=== PATIENT | female | born 1940 | race Caucasian/White ===

== ENCOUNTER 2017-01-29 07:53 | Emergency (ER) | payer OTHER ==
[2017-01-29] MEDS ORDERED: METOPROLOL SUCCINATE 100 MG SR 24H TABLET PO ONE (08:03)
[2017-01-29 08:04] VITALS: RESP 18; TEMP 98.5
--- NOTE | 2017-01-29 08:13 | PDOC ---
Epistaxis / Nasal FB - General Chief Complaint: Nasal/Mouth Problem /Injury Stated Complaint: nosebleed Date Seen by Provider: 01/29/17 Time Seen by Provider: 08:09 Source: POSITIVE: Patient Exam Limitations: POSITIVE: No limitations Nurse's Notes Reviewed & Considered: Yes - History of Present Illness Initial Comments: Patient comes in today with chief complaint of nosebleed. Patient was in her normal state of health this morning when her nose began bleeding profusely from the right naris. She comes in for further evaluation with nosebleed and swallowing blood. She denies any fever chills or sweats, no vomiting or diarrhea. Blood pressure is elevated at 180/110. She only sporadically takes her blood. Medication when she thinks she needs it. She is a very difficult historian. Timing: REPORTS: Abrupt Severity: Severe Context: REPORTS: None Modifying Factors: improves with: Nothing Associated Symptoms: Nausea Similar Symptoms Previously: No Recent Care Received: REPORTS: Denies Any Prior Injuries Related to Current Complaint?: No - Patient Allergies Allergies/Adverse Reactions: Allergies Allergy/AdvReac Type Severity Reaction Status Date / Time meloxicam Allergy Severe VOMITING Verified 01/29/17 07:55 - Patient Home Medications Home Medications: Home Medications Furosemide [Lasix] 1 tab PO QAM tab 04/15/16 Abatacept Inj [Orencia Inj] 250 mg IV MONTHLY 04/29/16 Cholecalciferol (Vitamin D3) [Vitamin D3] 1 cap PO 2XW #16 cap 06/29/16 Metoprolol Succinate 1 tab PO DAILY #90 tab 08/07/16 Past Medical History - heen HEENT History: Denies History Cardiovascular History: Hypertension, Arrhythmia, Other (please comment) Additional Cardiovasular History: previous episodes of rapid HR and chest pain Respiratory History: Denies History Gastrointestinal History: Denies History Genitourinary History: Denies History Endocrine History: Denies History Musculoskeletal History: Rheumatoid Arthritis Prosthesis or Implant: No Neurological History: Denies History Blood Disorders: Anemia Psychiatric History: Denies History History of Sexually Transmitted Diseases: No Female Reproductive History: Hysterectomy Cancer History: Denies History In Past Year Been Physically Harmed or Verbally Threatened: No History of MDRO: No History of Other Communicable Diseases: No Tobacco Use: Never Smoker Alcohol Use: None Substance Use Type: None Previous Surgical History: No Type / Date of Surgery: T&A/APPY/HYSTER/bowel resection Anesthesia Reactions: No Malignant Hyperthermia: No Significant Family History: No pertinent family hx ROS - Limitations ROS Limitations: No Limitations Constitution: REPORTS: Denies Symptoms Cardiovascular: REPORTS: Denies Cardiac Symptoms Respiratory: REPORTS: Denies Resp Symptoms Neurological: REPORTS: Denies Neuro Symptoms Gastrointestinal: REPORTS: Nausea Endocrine: REPORTS: Denies Symptoms Musculoskeletal: REPORTS: Denies MS Symptoms Genitourinary: REPORTS: Denies Symptoms Eyes: REPORTS: Denies Symptoms ENT: REPORTS: Nose Bleed (Right naris.) Skin: REPORTS: Denies Skin Symptoms Lympathic: REPORTS: Denies Lympathic Symptoms Immunologic: POSITIVE: Denies Symptoms Psychiatric: POSITIVE: Anxiety Nose Complaint Exam - General Appearance General Appearance: POSITIVE: Alert, Cooperative, No Evidence of Trauma, Anxious - HEENT Head / Face: POSITIVE: Atraumatic, Normal Inspection, No Facial Swelling Eyes: POSITIVE: Inspection Normal, PERRL, EOM's Intact Ears: POSITIVE: Ears Normal Inspection, Auricle Normal Nose: POSITIVE: No Apparent Trauma, Epistaxis, Active Bleeding Oropharynx: POSITIVE: External Inspection Nml, Voice Normal - Neurological / Psychological Neurological: POSITIVE: Affect Apporpriate, Oriented X3 - Neck Neck: POSITIVE: Normal Inspection - Respiratory Respiratory: POSITIVE: No Respiratory Distress - Abdomen Abdomen: Denies Tenderness: (All Quadrants) - Skin Skin: POSITIVE: Normal Color, No Skin Rash Procedure - Nose Complaint Procedure External Pressure / Nose Pinched for (minutes): 20 Inspection Method: Nasal Speculum Treatment: Nasal Rocket Inserted Nose Complaint Progress - Results Reviewed by me Lab Results Reviewed: Yes Lab Results:: Laboratory Results 01/29/17 Range/Units 08:10 WBC 7.85 (4.8-10.8) 10^3/uL RBC 4.88 (4.20-5.40) 10^6/uL Hgb 11.9 L (12.0-16.0) g/dL Hct 38.0 (37.0-47.0) % MCV 77.9 L (81-99) FL MCH 24.4 L (27-31) PG MCHC 31.3 L (33-37) g/dL RDW Std Deviation 44.8 (39-50) fL RDW Coeff of Julian 16.0 H (11.5-14.5) % Plt Count 346 (140-350) 10*3/uL MPV 9.9 (7.4-12.2) FL Immature Gran % (Auto) 0.1 (0-5) % Neut % (Auto) 58.6 (50-80) % Lymph % (Auto) 30.8 (10-50) % [place] % (Auto) 5.5 (5-15) % Eos % (Auto) 4.5 (0-8) % Baso % (Auto) 0.5 (0-1) % Immature Gran # (Auto) 0.01 10*3/UL Neut # (Auto) 4.60 10*3/UL Lymph # (Auto) 2.42 10*3/uL [place] # (Auto) 0.43 (0.3-0.8) 10*3/UL Eos # (Auto) 0.35 10*3/UL Baso # (Auto) 0.04 10*3/UL WBC Morphology Comment Normal morphology (NORM) Plt Morphology Comment Normal morphology (NORM) RBC Morph Comment Normal morphology (NORM) PT 10.1 (9.7-11.4) secs INR 0.98 (0.00-5.90) N/A Sodium 143 (135-145) meq/L Potassium 4.2 (3.8-5.2) meq/L Chloride 111 (98-112) meq/L Carbon Dioxide 22 L (23-33) meq/L Anion Gap 10 (5-20) BUN 20 (7-22) mg/dL Creatinine 1.0 (0.50-1.20) mg/dL Estimated GFR (>60 ml/min/1.73m(2)) BUN/Creatinine Ratio 20.00 (6-20) Glucose 99 (78-110) mg/dL Calculated Osmolality 298.0 H (267-292) mOsm/kg Calcium 9.2 (8.7-10.7) mg/dL Magnesium 1.9 (1.6-2.4) mg/dL Total Bilirubin 0.4 (0.3-1.2) mg/dL AST 20 (8-39) IU/L ALT 19 (9-52) IU/L Alkaline Phosphatase 124 (38-126) IU/L Total Protein 7.7 (6.1-8.0) g/dL Albumin 4.0 (3.5-4.8) g/dL Globulin 3.7 (2.50-4.10) g/dL Albumin/Globulin Ratio 1.00 L (1.3-2.0) mg/g - Patient's Progress Pain Medication Addressed: POSITIVE: No Re-Examine Time:: 08:55 Status: POSITIVE: Improved MDM / ED Course: Patient was examined, an IV started, blood drawn and sent to the lab for studies. Bilateral Rhino Rockets were placed, 5.5 cm. The right Rhino Rocket was then deflated and removed and a 7.5 was placed. Patient's nosebleed continued briskly from the anterior nightmares. The 7.5 cm Rhino Rocket was deflated and removed more anteriorly and reinflated. No stasis was then achieved. Patient received metoprolol IV for her hypertension. sHe continued to be quite anxious during her ER stay. Patient also received IV Ativan, and IV morphine. Findings: CBC shows hemoglobin low at 11, white count hematocrit are normal. INR is normal at 0.98. Assessment: Epistaxis Plan: Discharge to home on amoxicillin 500 mg 3 times a day for 7 days. Patient receives a prescription for [place] 5/325 #20. I was able to contact the ENT office in [facility], patient will be seen at 11 AM today. - Consult Counseled: POSITIVE: Patient, Family, RE: Lab Results, RE: DX, RE: Need for F/U Patient Care Time - Estimated PCT Patient Care Time (In Minutes): 45 Vital Signs - Recent Vital Signs Vital Signs: Vital Signs (Last 8 hours) Temp Pulse Resp BP Pulse Ox 01/29/17 07:58 98.5 F 102 H 18 180/110 95 - VS Reviewed Vital Signs Reviewed: Yes Discharge Clinical Impression: Epistaxis Condition: Fair Patient Instructions Given at Discharge: Nosebleed (ED)
[2017-01-29] MEDS ORDERED: METOPROLOL TARTRATE 5 MG/5 ML VIAL ONE (08:16)
[2017-01-29 08:19] LABS: BASOPHILS # (AUTO) 0.04 10*3/UL; BASOPHILS % (AUTO) 0.5 % (0-1); EOSINOPHILS % (AUTO) 4.5 % (0-8); HEMOGLOBIN 11.9 g/dL (12.0-16.0); IMM GRAN % (AUTO) 0.1 % (0-5); IMM GRAN# (AUTO) 0.01 10*3/UL; LYMPHOCYTES # (AUTO) 2.42 10*3/uL; LYMPHOCYTES % (AUTO) 30.8 % (10-50); MEAN CORPUSCULAR HEMOGLOBIN 24.4 PG (27-31); MEAN CORPUSCULAR HGB CONC 31.3 g/dL (33-37); MEAN PLATELET VOLUME 9.9 FL (7.4-12.2); MONOCYTES # (AUTO) 0.43 10*3/UL (0.3-0.8); MONOCYTES % (AUTO) 5.5 % (5-15); NEUTROPHILS % (AUTO) 58.6 % (50-80); RED BLOOD COUNT 4.88 10^6/uL (4.20-5.40); WHITE BLOOD COUNT 7.85 10^3/uL (4.8-10.8)
[2017-01-29 08:20] LABS: PLATELET MORPHOLOGY COMMENT NORMAL MORPHOLOGY (NORM)
[2017-01-29 08:26] LABS: PROTHROMBIN TIME 10.1 secs (9.7-11.4)
[2017-01-29] MEDS ORDERED: METOPROLOL TARTRATE 5 MG/5 ML VIAL IVP ONE (08:26)
[2017-01-29 08:27] LABS: BILIRUBIN,TOTAL 0.4 mg/dL (0.3-1.2); CALCIUM 9.2 mg/dL (8.7-10.7); MAGNESIUM 1.9 mg/dL (1.6-2.4); POTASSIUM 4.2 meq/L (3.8-5.2); TOTAL PROTEIN 7.7 g/dL (6.1-8.0)
[2017-01-29] MEDS: NORMAL SALINE 10 ML SYRINGE FLUSH IVP PRN ×4 (08:27→09:11)
[2017-01-29] MEDS ORDERED: SILVER NITRATE APPLICATOR 1 EACH TOPICAL ONE ×2 (08:47)
[2017-01-29] MEDS ORDERED: LORazepam 2 MG/1 ML VIAL ONE ×2 (09:01→09:27)
[2017-01-29] MEDS ORDERED: MORPHINE SULFATE 2 MG/1 ML IVP ONE (09:06)
[2017-01-29] MEDS ORDERED: MORPHINE SULFATE 4 MG/1 ML IVP ONE (09:06)
[2017-01-29] MEDS: LORazepam 2 MG/1 ML VIAL IVP ONE ×2 (09:07→09:30)
[2017-01-29] MEDS ORDERED: MORPHINE SULFATE 4 MG/1 ML ONE (09:08)
[2017-01-29] MEDS ORDERED: MORPHINE SULFATE 2 MG/1 ML ONE (09:26)
== END 2017-01-29 09:35 | disposition home or self-care (01) ==
LOC: ER 07:53
DX: R04.0 Epistaxis (principal); I10 Essential (primary) hypertension
CPT/HCPCS: 30901; 80053; 83735; 85025; 85610; 96374; 96375; 99282; J2060; J2270

== ENCOUNTER 2017-02-01 08:22 | Emergency (ER) | payer OTHER ==
[2017-02-01 09:00] VITALS: TEMP 97.5
[2017-02-01] MEDS ORDERED: NORMAL SALINE 10 ML SYRINGE FLUSH IVP PRN (09:21)
[2017-02-01] MEDS ORDERED: Sodium Chloride 0.9% 1,000 ML PRIMARY IV ONE (09:21)
[2017-02-01] MEDS ORDERED: ONDANSETRON 4 MG/2 ML VIAL IVP ONE (09:22)
[2017-02-01] MEDS ORDERED: ONDANSETRON 4 MG/2 ML VIAL ONE (09:23)
[2017-02-01 09:38] LABS: BASOPHILS # (AUTO) 0.04 10*3/UL; BASOPHILS % (AUTO) 0.5 % (0-1); EOSINOPHILS % (AUTO) 1.8 % (0-8); HEMATOCRIT 31.7 % (37.0-47.0); HEMOGLOBIN 9.7 g/dL (12.0-16.0); IMM GRAN % (AUTO) 0.1 % (0-5); IMM GRAN# (AUTO) 0.01 10*3/UL; LYMPHOCYTES # (AUTO) 1.49 10*3/uL; LYMPHOCYTES % (AUTO) 18.8 % (10-50); MEAN CORPUSCULAR HEMOGLOBIN 24.1 PG (27-31); MEAN CORPUSCULAR HGB CONC 30.6 g/dL (33-37); MEAN PLATELET VOLUME 9.8 FL (7.4-12.2); MONOCYTES # (AUTO) 0.48 10*3/UL (0.3-0.8); MONOCYTES % (AUTO) 6.1 % (5-15); NEUTROPHILS # (AUTO) 5.77 10*3/UL; NEUTROPHILS % (AUTO) 72.7 % (50-80); RDW COEFFICIENT OF VARIATION 15.9 % (11.5-14.5); RED BLOOD COUNT 4.02 10^6/uL (4.20-5.40); WHITE BLOOD COUNT 7.93 10^3/uL (4.8-10.8)
[2017-02-01 09:40] LABS: BUN/CREATININE RATIO 18.18 (6-20); CALCIUM 8.9 mg/dL (8.7-10.7); CREATININE 1.1 mg/dL (0.50-1.20); POTASSIUM 3.7 meq/L (3.8-5.2)
[2017-02-01 09:41] LABS: PLATELET MORPHOLOGY COMMENT NORMAL MORPHOLOGY (NORM)
[2017-02-01 09:44] LABS: PROTHROMBIN TIME 10.3 secs (9.7-11.4)
[2017-02-01] MEDS ORDERED: LORazepam 2 MG/1 ML VIAL ONE (09:45)
[2017-02-01] MEDS ORDERED: MORPHINE SULFATE 4 MG/1 ML ONE (09:45)
[2017-02-01] MEDS ORDERED: SODIUM CL 0.9% FOR INH 3 ML NEB NEB ONE (09:47)
[2017-02-01] MEDS ORDERED: fentaNYL Inj 100 MCG/2 ML VIAL IVP ONE (09:48)
[2017-02-01] MEDS ORDERED: LORazepam 2 MG/1 ML VIAL IVP ONE (09:49)
[2017-02-01] MEDS ORDERED: COCAINE HCL 4% - 4 ML TOPICAL SOLUTION TOPICAL ONE (09:52)
[2017-02-01 11:55] VITALS: RESP 16
--- NOTE | 2017-02-01 15:17 | PDOC ---
Epistaxis / Nasal FB - General Chief Complaint: Nasal/Mouth Problem /Injury Stated Complaint: Nose bleed Date Seen by Provider: 02/01/17 Time Seen by Provider: 09:00 Source: POSITIVE: Patient, Other (daughter) Exam Limitations: POSITIVE: No limitations Nurse's Notes Reviewed & Considered: Yes - History of Present Illness Initial Comments: The patient is a 76-year-old female who is evaluated in the emergency department with recurrent nosebleed. She had developed a nosebleed on Wednesday of last week and initially was evaluated here in the emergency room. At that time she was bleeding primarily from the right side however was having diffuse bleeding from both nares. She ended up having a 5.5 cm rapid Rhino placed in both nares. She had continued bleeding and the right side was replaced with a 7.5 cm rapid Rhino. The bleeding was subsequently stopped and she had been discharged home to follow-up with ENT. She saw Dr. Kiran in [place] later that day and he made some adjustments to the air within the packing. She was supposed to follow up with him again this morning. She stated that approximately an hour prior to arrival here she had onset of bleeding both going down the back of her throat and coming out her right nares. She subsequently came here to the emergency room. After arrival here in the ER she states that the bleeding seems to have stopped. She does however feel weak and is somewhat nauseated. She has been taking amoxicillin since placement of the packing as well as hydrocodone which she states has not been helping very much for pain. She denies fevers or chills or any other associated symptoms at this time. She does not take any blood thinner medications. - Patient Allergies Allergies/Adverse Reactions: Allergies Allergy/AdvReac Type Severity Reaction Status Date / Time meloxicam Allergy Severe VOMITING Verified 02/01/17 08:36 - Patient Home Medications Home Medications: Home Medications Abatacept Inj [Orencia Inj] 250 mg IV MONTHLY 04/29/16 Metoprolol Succinate 1 tab PO DAILY #90 tab 08/07/16 Amoxicillin 500 mg PO TID 02/01/17 HYDROcodone/APAP 5/325 Tab [[place] 5/325 Tab] 1 each PO Q6H PRN PRN 02/01/17 oxyCODONE/APAP 7.5/325 Tab [Percocet 7.5/325 Tab] 1 each PO Q4H PRN #15 tablet 02/01/17 Past Medical History - heen HEENT History: Denies History Cardiovascular History: Hypertension, PVD, Arrhythmia, Other (please comment) Additional Cardiovasular History: previous episodes of rapid HR and chest pain Respiratory History: Denies History Gastrointestinal History: Denies History Genitourinary History: Denies History Endocrine History: Denies History Musculoskeletal History: Rheumatoid Arthritis Prosthesis or Implant: No Neurological History: Denies History Blood Disorders: Anemia Psychiatric History: Denies History History of Sexually Transmitted Diseases: No Cancer History: Denies History In Past Year Been Physically Harmed or Verbally Threatened: No History of MDRO: No History of Other Communicable Diseases: No Tobacco Use: Never Smoker Alcohol Use: None Substance Use Type: None Previous Surgical History: No Type / Date of Surgery: T&A/APPY/HYSTER/bowel resection Anesthesia Reactions: No Malignant Hyperthermia: No Significant Family History: No pertinent family hx Past Medical History Reviewed: Reviewed - No Changes ROS - Limitations ROS Limitations: No Limitations Constitution: REPORTS: Denies Symptoms. DENIES: Chills, Fever Cardiovascular: REPORTS: Denies Cardiac Symptoms Respiratory: REPORTS: Denies Resp Symptoms Neurological: REPORTS: Denies Neuro Symptoms Nose Complaint Exam - General Appearance General Appearance: POSITIVE: Alert, Cooperative, No Acute Distress - HEENT Head / Face: POSITIVE: Other (she does have bilateral rapid Rhino was in place, no active bleeding at the time of initial evaluation) Eyes: POSITIVE: Other (she does have some mild periorbital edema bilaterally) Ears: POSITIVE: Ears Normal Inspection Nose: POSITIVE: Other (bilateral nasal packing) Oropharynx: POSITIVE: Other (no visible bleeding down the back of her throat on initial evaluation) - Neurological / Psychological Neurological: POSITIVE: Oriented X3, Motor Normal, Sensation Normal, Other (no focal neurologic deficit) - Respiratory Respiratory: POSITIVE: No Respiratory Distress, Breath Sounds Normal - Cardiovascular Cardiovascular: POSITIVE: Regular Rate and Rhythm, Heart Sounds Normal Procedure - Nose Complaint Procedure Clots Cleared: By Blowing Medication Instilled: Cocaine Treatment: Other (5.5 cm rapid Rhino was removed on the left and replaced with a 7.5 cm rapid Rhino) Procedure Note:: After discussion with her ENT physician the 5.5 cm rapid Rhino was replaced with a 7.5 cm rapid Rhino. Initially the patient did have oozing from the right side after reinflation of the balloon. Some additional air was placed and the bleeding seemed to have subsided. The patient stated that she felt comfortable. No further bleeding observed here. Nose Complaint Progress - Results Reviewed by me Lab Results Reviewed: Yes Lab Results:: Laboratory Results 02/01/17 Range/Units 09:16 WBC 7.93 (4.8-10.8) 10^3/uL RBC 4.02 L (4.20-5.40) 10^6/uL Hgb 9.7 L (12.0-16.0) g/dL Hct 31.7 L (37.0-47.0) % MCV 78.9 L (81-99) FL MCH 24.1 L (27-31) PG MCHC 30.6 L (33-37) g/dL RDW Std Deviation 44.6 (39-50) fL RDW Coeff of [place] 15.9 H (11.5-14.5) % Plt Count 276 (140-350) 10*3/uL MPV 9.8 (7.4-12.2) FL Immature Gran % (Auto) 0.1 (0-5) % Neut % (Auto) 72.7 (50-80) % Lymph % (Auto) 18.8 (10-50) % [place] % (Auto) 6.1 (5-15) % Eos % (Auto) 1.8 (0-8) % Baso % (Auto) 0.5 (0-1) % Immature Gran # (Auto) 0.01 10*3/UL Neut # (Auto) 5.77 10*3/UL Lymph # (Auto) 1.49 10*3/uL [place] # (Auto) 0.48 (0.3-0.8) 10*3/UL Eos # (Auto) 0.14 10*3/UL Baso # (Auto) 0.04 10*3/UL WBC Morphology Comment Normal morphology (NORM) Plt Morphology Comment Normal morphology (NORM) RBC Morph Comment Normal morphology (NORM) PT 10.3 (9.7-11.4) secs INR 1.00 (0.00-5.90) N/A APTT 26.9 (22.6-31.3) SECS Sodium 139 (135-145) meq/L Potassium 3.7 L (3.8-5.2) meq/L Chloride 107 (98-112) meq/L Carbon Dioxide 23 (23-33) meq/L Anion Gap 9 (5-20) BUN 20 (7-22) mg/dL Creatinine 1.1 (0.50-1.20) mg/dL Estimated GFR (>60 ml/min/1.73m(2)) BUN/Creatinine Ratio 18.18 (6-20) Glucose 99 (78-110) mg/dL Calculated Osmolality 290.0 (267-292) mOsm/kg Calcium 8.9 (8.7-10.7) mg/dL - Patient's Progress MDM / ED Course: On arrival the patient was not actively bleeding anymore. She did feel weak and somewhat nauseated. An IV was established and she did receive 1 L bolus of normal saline as well as 4 mg of Zofran IV. Baseline blood work was obtained. Her hemoglobin did drop from 11.7-9.7 since last Wednesday. She does have a history of chronic anemia when looking through her previous blood work. Shortly after arrival I did discuss the patient with Dr. Kiran who is the ENT physician who saw her last Wednesday. He recommended replacing the 5.5 cm packing on the left with a 7.5 cm. When I went to discuss this with the patient it appeared that she had started bleeding a little bit again mostly from the right side. She did receive a dose of fentanyl and Ativan prior to the nasal packing. This did drop her oxygen saturation and she was placed on O2 per nasal cannula in her mouth for the procedure. Subsequently the balloons from both packings were released and the 5.5 cm packing was removed from the left side. This was replaced with a 7.5 cm rapid Rhino after administration of topical cocaine for an anesthetic. The patient tolerated this well. Both rapid Rhino was were then reinflated. She continued to have some oozing from the right side and more air was added to the right side after which the bleeding stopped. She was monitored here in the emergency room for proximally 45 minutes and had no further bleeding. At this time she will be discharged home. She will continue amoxicillin as previously prescribed. She was given a prescription for Percocet as needed for pain. Her ENT physician wanted to see her on Wednesday or this week. She is instructed to return to the emergency room if she develops any further bleeding, fever, increased pain, any worsening or change in symptoms. - Consult Counseled: POSITIVE: Patient, Family, RE: Lab Results, RE: DX, RE: Need for F/U Patient Care Time - Estimated PCT Patient Care Time (In Minutes): 50 Vital Signs - Recent Vital Signs Vital Signs: Vital Signs (Last 8 hours) Temp Pulse Resp BP Pulse Ox 02/01/17 11:20 115 H 16 163/88 93 02/01/17 08:43 97.5 F 104 H 20 151/93 93 - VS Reviewed Vital Signs Reviewed: Yes Discharge Clinical Impression: Epistaxis, Anemia Condition: Good Prescriptions / Orders: oxyCODONE/APAP 7.5/325 Tab [Percocet 7.5/325 Tab] 1 each PO Q4H PRN #15 tablet PRN Reason: Pain Patient Instructions Given at Discharge: Nosebleed (ED) Additional Instructions: Leave packing in place. Continue amoxicillin as previously prescribed. Percocet 5/325 one every 4-6 hours as needed for pain. Return to the emergency room if increased bleeding, increased weakness, any worsening or change in symptoms. Follow-up with Dr. Kiran at [facility] on Wednesday or , call today to arrange appointment. Follow Up With: GRACIELA GAMEZ [Primary Care Provider] -
== END 2017-02-01 11:30 | disposition home or self-care (01) ==
LOC: ER 08:22
DX: R04.0 Epistaxis (principal); D64.9 Anemia, unspecified
CPT/HCPCS: 30901 ×2; 36415; 80048; 85025; 85610; 85730; 96361; 96374; 96375; 99282 ×2; J3010; J2060; J2270; J2405; J7030

== ENCOUNTER 2017-02-02 08:28 | Emergency (ER) | payer OTHER ==
[2017-02-02] MEDS ORDERED: Sodium Chloride 0.9% 1,000 ML PRIMARY IV ONE (08:40)
[2017-02-02] MEDS ORDERED: NORMAL SALINE 10 ML SYRINGE FLUSH IVP PRN (08:40)
[2017-02-02 08:54] VITALS: TEMP 98.9
[2017-02-02 08:56] LABS: BASOPHILS # (AUTO) 0.03 10*3/UL; BASOPHILS % (AUTO) 0.5 % (0-1); EOSINOPHILS # (AUTO) 0.11 10*3/UL; EOSINOPHILS % (AUTO) 1.7 % (0-8); HEMATOCRIT 28.7 % (37.0-47.0); HEMOGLOBIN 8.6 g/dL (12.0-16.0); LYMPHOCYTES # (AUTO) 1.49 10*3/uL; MEAN CORPUSCULAR HEMOGLOBIN 23.9 PG (27-31); MONOCYTES # (AUTO) 0.28 10*3/UL (0.3-0.8); MONOCYTES % (AUTO) 4.4 % (5-15); NEUTROPHILS # (AUTO) 4.43 10*3/UL; NEUTROPHILS % (AUTO) 69.7 % (50-80)
--- NOTE | 2017-02-02 08:56 | PDOC ---
Epistaxis / Nasal FB - General Chief Complaint: Nasal/Mouth Problem /Injury Stated Complaint: nosebleed Date Seen by Provider: 02/02/17 Time Seen by Provider: 08:35 Source: POSITIVE: Patient Exam Limitations: POSITIVE: No limitations Nurse's Notes Reviewed & Considered: Yes - History of Present Illness Initial Comments: The patient is a 76-year-old female who returns to the emergency department by ambulance with recurrent nosebleed. Her nosebleed started Wednesday of last week and was initially packed here in the emergency room. She subsequently went to the ENT in [place] and the packing was adjusted then. She had recurrent nosebleed despite the packing and was seen here yesterday. At that time her H& H had dropped from 12-9.7. She had been given a liter of fluid in the left rapid Rhino was replaced from a 5.5 cm to a 7.5 cm. She had been observed here in the emergency room for 45 minutes to an hour and had no recurrent bleeding and was discharged home. She is scheduled to follow-up with the ENT again on . This morning when she woke up and got out of bed she started bleeding. She states that the bleeding was very brisk. She could not seem to get the bleeding to stop and subsequently called the ambulance and they brought her here from her home in [place]. By the time she arrives here in the emergency room the bleeding seems to have stopped again. She denies fevers or chills or any other associated complaints. - Patient Allergies Allergies/Adverse Reactions: Allergies Allergy/AdvReac Type Severity Reaction Status Date / Time meloxicam Allergy Severe VOMITING Verified 02/02/17 08:36 - Patient Home Medications Home Medications: Home Medications Abatacept Inj [Orencia Inj] 250 mg IV MONTHLY 04/29/16 Metoprolol Succinate 1 tab PO DAILY #90 tab 08/07/16 Amoxicillin 500 mg PO TID 02/01/17 HYDROcodone/APAP 5/325 Tab [[place] 5/325 Tab] 1 each PO Q6H PRN PRN 02/01/17 oxyCODONE/APAP 7.5/325 Tab [Percocet 7.5/325 Tab] 1 each PO Q4H PRN #15 tablet 02/01/17 Past Medical History - heen HEENT History: Denies History Cardiovascular History: Hypertension, PVD, Arrhythmia, Other (please comment) Additional Cardiovasular History: previous episodes of rapid HR and chest pain Respiratory History: Denies History Gastrointestinal History: Denies History Genitourinary History: Denies History Endocrine History: Denies History Musculoskeletal History: Rheumatoid Arthritis Prosthesis or Implant: No Neurological History: Denies History Blood Disorders: Anemia Psychiatric History: Denies History History of Sexually Transmitted Diseases: No Cancer History: Denies History In Past Year Been Physically Harmed or Verbally Threatened: No History of MDRO: No History of Other Communicable Diseases: No Tobacco Use: Never Smoker Alcohol Use: None Substance Use Type: None Previous Surgical History: No Type / Date of Surgery: T&A/APPY/HYSTER/bowel resection Anesthesia Reactions: No Malignant Hyperthermia: No Significant Family History: No pertinent family hx Past Medical History Reviewed: Reviewed - No Changes ROS - Limitations ROS Limitations: No Limitations Constitution: DENIES: Chills, Fever Cardiovascular: REPORTS: Denies Cardiac Symptoms Respiratory: REPORTS: Denies Resp Symptoms Neurological: REPORTS: Denies Neuro Symptoms Gastrointestinal: REPORTS: Denies GI Symptoms Nose Complaint Exam - General Appearance General Appearance: POSITIVE: Alert, Cooperative, No Acute Distress - HEENT Head / Face: POSITIVE: Other (she does have facial swelling as well as bilateral nasal packing in place, no evidence of bleeding from the nares at this point) Eyes: POSITIVE: Other (bilateral periorbital edema, no erythema) Ears: POSITIVE: Ears Normal Inspection Nose: POSITIVE: Other (bilateral packings in place) Oropharynx: POSITIVE: Airway Intact, Voice Normal, Moist Mucous Membranes, Other (no bleeding down the posterior oropharynx) - Neurological / Psychological Neurological: POSITIVE: Other (no focal neurologic deficits) Nose Complaint Progress - Results Reviewed by me Lab Results Reviewed: Yes Lab Results:: Laboratory Results 02/02/17 Range/Units 08:52 WBC 6.36 (4.8-10.8) 10^3/uL RBC 3.60 L (4.20-5.40) 10^6/uL Hgb 8.6 L (12.0-16.0) g/dL Hct 28.7 L (37.0-47.0) % MCV 79.7 L (81-99) FL MCH 23.9 L (27-31) PG MCHC 30.0 L (33-37) g/dL RDW Std Deviation 44.1 (39-50) fL RDW Coeff of Julian 15.9 H (11.5-14.5) % Plt Count 289 (140-350) 10*3/uL MPV 9.0 (7.4-12.2) FL Immature Gran % (Auto) 0.3 (0-5) % Neut % (Auto) 69.7 (50-80) % Lymph % (Auto) 23.4 (10-50) % [place] % (Auto) 4.4 L (5-15) % Eos % (Auto) 1.7 (0-8) % Baso % (Auto) 0.5 (0-1) % Immature Gran # (Auto) 0.02 10*3/UL Neut # (Auto) 4.43 10*3/UL Lymph # (Auto) 1.49 10*3/uL [place] # (Auto) 0.28 L (0.3-0.8) 10*3/UL Eos # (Auto) 0.11 10*3/UL Baso # (Auto) 0.03 10*3/UL WBC Morphology Comment Normal morphology (NORM) Plt Morphology Comment Normal morphology (NORM) RBC Morph Comment Normal morphology (NORM) Sodium 138 (135-145) meq/L Potassium 4.1 (3.8-5.2) meq/L Chloride 106 (98-112) meq/L Carbon Dioxide 24 (23-33) meq/L Anion Gap 8 (5-20) BUN 14 (7-22) mg/dL Creatinine 1.1 (0.50-1.20) mg/dL Estimated GFR (>60 ml/min/1.73m(2)) BUN/Creatinine Ratio 12.72 (6-20) Glucose 95 (78-110) mg/dL Calculated Osmolality 286.0 (267-292) mOsm/kg Calcium 9.1 (8.7-10.7) mg/dL Total Bilirubin 0.4 (0.3-1.2) mg/dL AST 21 (8-39) IU/L ALT 20 (9-52) IU/L Alkaline Phosphatase 96 (38-126) IU/L Total Protein 6.8 (6.1-8.0) g/dL Albumin 3.5 (3.5-4.8) g/dL Globulin 3.2 (2.50-4.10) g/dL Albumin/Globulin Ratio 1.00 L (1.3-2.0) mg/g - Patient's Progress MDM / ED Course: An IV had been established per EMS and she did receive normal saline. Labs were repeated. Shortly after arrival she is bleeding fairly profusely from the right side. The air in both rapid Rhino was was increased and the bleeding slowed. She continues to have a very slow ooze. I had discussed the patient with Dr. Smith who is the ENT in [place] who had been taking care of her. He thought that the patient might be able to be observed here in the hospital and transferred to [place] if she had continued issues. Repeat H&H reveals a hemoglobin of 8.6. This is down from 9.7 yesterday. She continues to have a very slow ooze from the right nares. I did discuss the patient with Dr. Longo who is our hospitalist today. He felt that the patient would be better served in a facility that had ENT available at this point and I agree with this assessment. I did call Dr. Smith back and he was in the operating room, I left message that I would be making arrangements to transfer the patient to [facility]. Subsequently spoke with Dr. Fulton who is the hospitalist at [facility]. He to accept the patient in transfer. There will be a slight delay in transfer as we are waiting for a bed to become available at [facility] in this happened in the next couple of hours. The patient will be transferred to [facility] by ambulance. All of these findings and recommendations were discussed with the tender family and they are in agreement with this plan. The patient was feeling anxious and received Ativan 1 mg IV. Because of her continued oozing and dropping hemoglobin she was typed and crossed for 2 units of packed red blood cells as well. - Consult Counseled: POSITIVE: Patient, Family, RE: Lab Results, RE: DX Patient Care Time - Estimated PCT Patient Care Time (In Minutes): 50 Vital Signs - Recent Vital Signs Vital Signs: Vital Signs (Last 8 hours) Temp Pulse Resp BP Pulse Ox 02/02/17 08:28 98.9 F 95 18 144/79 94 - VS Reviewed Vital Signs Reviewed: Yes Discharge Clinical Impression: Anemia, Epistaxis Condition: Fair Date Decision to Transfer to Another Facility: 02/02/17 Time Decision to Transfer to Another Facility: 10:00
[2017-02-02 09:01] LABS: PLATELET MORPHOLOGY COMMENT NORMAL MORPHOLOGY (NORM); RBC MORPHOLOGY COMMENT NORMAL MORPHOLOGY (NORM); WBC MORPHOLOGY COMMENT NORMAL MORPHOLOGY (NORM)
[2017-02-02 09:04] LABS: BUN/CREATININE RATIO 12.72 (6-20); CALCIUM 9.1 mg/dL (8.7-10.7); SERUM ALBUMIN 3.5 g/dL (3.5-4.8)
[2017-02-02] MEDS ORDERED: LORazepam 2 MG/1 ML VIAL IVP ONE (09:15)
[2017-02-02 11:26] VITALS: RESP 16
== END 2017-02-02 11:37 | disposition short-term general hospital (02) ==
LOC: ER 08:28
DX: R04.0 Epistaxis (principal)
CPT/HCPCS: 36415; 80053; 85025; 86850; 86900; 86901; 86922; 96374; 99282; J2060; J7030

== ENCOUNTER 2017-02-07 06:47 | Emergency (ER) | payer OTHER ==
[2017-02-07 07:11] VITALS: RESP 16; TEMP 98.6
[2017-02-07] MEDS ORDERED: NORMAL SALINE 10 ML SYRINGE FLUSH IVP PRN (07:11)
--- NOTE | 2017-02-07 07:15 | EKG ---
[address] [address] Measurements Intervals [place] Rate: 71 P: 62 TN: 152 QRS: 44 QRSD: 86 T: 42 QT: 376 QTc: 399 Interpretive Statements SINUS RHYTHM INDETERMINATE AXIS ATYPICAL ECG Compared to ECG 02/16/2015 11:08:12 Indeterminate axis now present Sinus tachycardia no longer present Left-axis deviation no longer present Myocardial infarct finding no longer present Electronically Signed On 02-07-17 13:34:58 MDT by Edouard Macias [email or web address]
[2017-02-07 07:24] LABS: BASOPHILS # (AUTO) 0.03 10*3/UL; BASOPHILS % (AUTO) 0.6 % (0-1); EOSINOPHILS # (AUTO) 0.25 10*3/UL; EOSINOPHILS % (AUTO) 4.8 % (0-8); HEMATOCRIT 27.3 % (37.0-47.0); HEMOGLOBIN 8.4 g/dL (12.0-16.0); LYMPHOCYTES # (AUTO) 0.85 10*3/uL; MEAN CORPUSCULAR HEMOGLOBIN 24.4 PG (27-31); MEAN CORPUSCULAR HGB CONC 30.8 g/dL (33-37); MEAN PLATELET VOLUME 9.6 FL (7.4-12.2); MONOCYTES # (AUTO) 0.36 10*3/UL (0.3-0.8); MONOCYTES % (AUTO) 6.9 % (5-15); NEUTROPHILS # (AUTO) 3.69 10*3/UL; NEUTROPHILS % (AUTO) 71.1 % (50-80); PLATELET MORPHOLOGY COMMENT NORMAL MORPHOLOGY (NORM); RBC MORPHOLOGY COMMENT NORMAL MORPHOLOGY (NORM); RED BLOOD COUNT 3.44 10^6/uL (4.20-5.40); WBC MORPHOLOGY COMMENT NORMAL MORPHOLOGY (NORM)
[2017-02-07 07:30] LABS: CALCIUM 8.4 mg/dL (8.7-10.7); SERUM ALBUMIN 3.3 g/dL (3.5-4.8)
[2017-02-07 07:42] LABS: CREATINE KINASE MB 1.36 NG/ML (0.00-5.00); TROPONIN I 0.022 ng/mL (< 0.040)
--- NOTE | 2017-02-07 08:06 | PDOC ---
General Adult HPI - General Chief Complaint: Chest Pain Stated Complaint: chest pressure/shortness of breath Date Seen by Provider: 02/07/17 Time Seen by Provider: 07:55 Source: POSITIVE: Patient Exam Limitations: POSITIVE: No limitations Nurse's Notes Reviewed & Considered: Yes - History of Present Illness Initial Comment: The patient is a 76-year-old female who arrives from her residence by ambulance. Patient states that this morning she developed extreme anxiety. Patient was recently treated for posterior epistaxis by otolaryngology at [facility]. Patient reportedly had a surgical procedure to control this bleeding. She presents to the emergency room with a nasal packing in place , right nostril. 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 She states this episode of severe epistaxis has been emotionally trying for her. She had to have a blood transfusion in [place]. She is on antibiotic while she has the packing in place. She denies any chest pain. No focal neurologic symptoms. No syncope or near-syncope. No fevers or chills. No GI or symptoms. No rashes or skin changes. Have you received a tetanus shot in the past 10 years?: Yes Body Location Affected: REPORTS: Other (As above) Timing: REPORTS: Abrupt, Improved Duration: 1-3 hours (Better now) Severity: Moderate Quality: REPORTS: Other (Patient denies any pain) Context: REPORTS: Other (Recent issue with severe nosebleeds as above) Modifying Factors: improves with: Nothing Similar Symptoms Previously: No Recent Care Received: REPORTS: Recently Seen, Treated by MD, Hospitalized, Surgery (As above) Any Prior Injuries Related to Current Complaint?: No - Patient Home Medications Home Medications: Home Medications Abatacept Inj [Orencia Inj] 250 mg IV MONTHLY 04/29/16 Metoprolol Succinate 1 tab PO DAILY #90 tab 08/07/16 Amoxicillin 500 mg PO TID 02/01/17 HYDROcodone/APAP 5/325 Tab [[place] 5/325 Tab] 1 each PO Q6H PRN PRN 02/01/17 oxyCODONE/APAP 7.5/325 Tab [Percocet 7.5/325 Tab] 1 each PO Q4H PRN #15 tablet 02/01/17 LORazepam Tab [Ativan Tab] 1 mg PO Q8H PRN #10 tablet 02/07/17 - Patient Allergies Allergies/Adverse Reactions: Allergies Allergy/AdvReac Type Severity Reaction Status Date / Time meloxicam Allergy Severe VOMITING Verified 02/07/17 06:59 Past Medical History - heen HEENT History: Denies History Cardiovascular History: Hypertension, PVD, Arrhythmia, Other (please comment) Additional Cardiovasular History: previous episodes of rapid HR and chest pain Respiratory History: Denies History Gastrointestinal History: Denies History Genitourinary History: Denies History Endocrine History: Denies History Musculoskeletal History: Rheumatoid Arthritis Prosthesis or Implant: No Neurological History: Denies History Blood Disorders: Anemia Psychiatric History: Denies History History of Sexually Transmitted Diseases: No Cancer History: Denies History In Past Year Been Physically Harmed or Verbally Threatened: No History of MDRO: No History of Other Communicable Diseases: No Tobacco Use: Never Smoker Alcohol Use: None Substance Use Type: None Previous Surgical History: No Type / Date of Surgery: T&A/APPY/HYSTER/bowel resection, nasal surgery Anesthesia Reactions: No Malignant Hyperthermia: No Significant Family History: No pertinent family hx Past Medical History Reviewed: Reviewed - No Changes ROS - Limitations ROS Limitations: No Limitations Constitution: REPORTS: Denies Symptoms Cardiovascular: REPORTS: Denies Cardiac Symptoms Respiratory: REPORTS: Denies Resp Symptoms Neurological: REPORTS: Denies Neuro Symptoms Gastrointestinal: REPORTS: Denies GI Symptoms Endocrine: REPORTS: Denies Symptoms Musculoskeletal: REPORTS: Denies MS Symptoms Genitourinary: REPORTS: Denies Symptoms Eyes: REPORTS: Denies Symptoms ENT: REPORTS: Other (Recent severe epistaxis as above. None presently.) Skin: REPORTS: Denies Skin Symptoms Lympathic: REPORTS: Denies Lympathic Symptoms Immunologic: POSITIVE: Denies Symptoms Psychiatric: POSITIVE: Denies Psych Symptoms General Adult Exam - General Appearance General Appearance: POSITIVE: Alert, Cooperative, No Acute Distress, No Evidence of Trauma - HEENT HEENT: POSITIVE: Head Inspection Nml, Eyes Inspection Nml, Ears Inspection Nml, Oral/Dental Inspect. Nml, Pharynx Inspect. Nml, PERRL, EOMI. NEGATIVE: Nose Inspection Nml (Packing, right nostril) - Pupils Pupil Size: 4 mm: Bilateral (PERRLA) - Neck Neck: POSITIVE: Normal Inspection, Thyroid Normal - Respiratory Respiratory: POSITIVE: No Respiratory Distress, Breath Sounds Normal, Chest Non- Tender - Cardiovascular Cardiovascular: POSITIVE: Regular Rate & Rhythm, No Murmur, No Gallop, PMI Normal Peripheral Pulses: Radial (R): 2+, Radial (L): 2+ - Abdomen Abdomen: Soft: (All Quadrants), Normal Bowel Sounds: (All Quadrants), Denies Tenderness: (All Quadrants), No Splenomegaly: (All Quadrants), No Hepatomegaly: (All Quadrants), No Guarding: (All Quadrants), No Rebound: (All Quadrants), No Palpable Pulse: (All Quadrants), No Palpabale Mass: (All Quadrants), No Distention: (All Quadrants), No Rigidity: (All Quadrants) - Back Back: POSITIVE: Normal Inspection - Skin Skin: POSITIVE: Normal Color, Warm, Dry, No Rash - Extremities Extremity: Non-Tender: (All Extremities), Normal ROM: (All Extremities), Normal Inspection: (All Extremities) - Neurological / Psychological Neurological: POSITIVE: Oriented X3, rand tacker Normal As Tested, Motor Normal, Sensation Normal, 5, 6 General Adult Progress - Results Reviewed by me Lab Results Reviewed: Yes Lab Results:: Laboratory Results 02/07/17 Range/Units 07:04 WBC 5.19 (4.8-10.8) 10^3/uL RBC 3.44 L (4.20-5.40) 10^6/uL Hgb 8.4 L (12.0-16.0) g/dL Hct 27.3 L (37.0-47.0) % MCV 79.4 L (81-99) FL MCH 24.4 L (27-31) PG MCHC 30.8 L (33-37) g/dL RDW Std Deviation 44.5 (39-50) fL RDW Coeff of [place] 15.9 H (11.5-14.5) % Plt Count 307 (140-350) 10*3/uL MPV 9.6 (7.4-12.2) FL Immature Gran % (Auto) 0.2 (0-5) % Neut % (Auto) 71.1 (50-80) % Lymph % (Auto) 16.4 (10-50) % [place] % (Auto) 6.9 (5-15) % Eos % (Auto) 4.8 (0-8) % Baso % (Auto) 0.6 (0-1) % Immature Gran # (Auto) 0.01 10*3/UL Neut # (Auto) 3.69 10*3/UL Lymph # (Auto) 0.85 10*3/uL [place] # (Auto) 0.36 (0.3-0.8) 10*3/UL Eos # (Auto) 0.25 10*3/UL Baso # (Auto) 0.03 10*3/UL WBC Morphology Comment Normal morphology (NORM) Plt Morphology Comment Normal morphology (NORM) RBC Morph Comment Normal morphology (NORM) Sodium 140 (135-145) meq/L Potassium 3.6 L (3.8-5.2) meq/L Chloride 106 (98-112) meq/L Carbon Dioxide 25 (23-33) meq/L Anion Gap 9 (5-20) BUN 8 (7-22) mg/dL Creatinine 0.8 (0.50-1.20) mg/dL Estimated GFR (>60 ml/min/1.73m(2)) BUN/Creatinine Ratio 10.00 (6-20) Glucose 96 (78-110) mg/dL Calculated Osmolality 287.0 (267-292) mOsm/kg Calcium 8.4 L (8.7-10.7) mg/dL Total Bilirubin 0.5 (0.3-1.2) mg/dL AST 38 (8-39) IU/L ALT 23 (9-52) IU/L Alkaline Phosphatase 81 (38-126) IU/L CK-MB (CK-2) 1.36 (0.00-5.00) NG/ML Troponin I 0.022 (< 0.040) ng/mL Total Protein 6.5 (6.1-8.0) g/dL Albumin 3.3 L (3.5-4.8) g/dL Globulin 3.2 (2.50-4.10) g/dL Albumin/Globulin Ratio 1.00 L (1.3-2.0) mg/g EKG Interpreted/Reviewed By Me:: Yes EKG Interpretation:: POSITIVE: Normal Sinus Rhythm, Normal Rate, Normal Intervals, Normal [place], Normal QRS, Normal ST/T - Patient's Progress Pain Medication Addressed: POSITIVE: Not Applicable School/Work Release Addressed: POSITIVE: Not Applicable Re-Examine Time: 08:00 Re-Examine Comment: Patient asymptomatic on discharge. Hemoglobin today is 8.4 ; hemoglobin 02/02/2017 is 8.6. Patient asymptomatic on discharge. Status: POSITIVE: Improved, Re-Examined Antibiotics Given: No - Consult Counseled: POSITIVE: Patient, Family, RE: Lab Results, RE: DX, RE: Need for F/U Patient Care Time - Estimated PCT Patient Care Time (In Minutes): 40 Vital Signs - Recent Vital Signs Vital Signs: Vital Signs (Last 8 hours) Temp Pulse Resp BP Pulse Ox 02/07/17 07:00 98.6 F 87 16 171/93 97 - VS Reviewed Vital Signs Reviewed: Yes Discharge Clinical Impression: Anxiety Discharge Disposition: Discharged to Home Condition: Stable Prescriptions / Orders: LORazepam Tab [Ativan Tab] 1 mg PO Q8H PRN #10 tablet PRN Reason: Anxiety Patient Instructions Given at Discharge: Anxiety (ED) Additional Instructions: Rest. Ativan, one every 8 hours as necessary for anxiety. Follow-up with your [facility] [place] throat specialist tomorrow, as is already arranged. Also follow-up with your primary care provider. Return here anytime if condition worsens in any way. Follow Up With: GRACIELA GAMEZ [Primary Care Provider] - (Instructions as above. Follow-up with your ENT physician and primary care provider. Return here anytime if condition worsens.)
== END 2017-02-07 08:10 | disposition home or self-care (01) ==
LOC: ER 06:47
DX: F41.9 Anxiety disorder, unspecified (principal); R06.02 Shortness of breath
CPT/HCPCS: 80053; 82553; 84484; 85025; 93005; 93010; 99283

== ENCOUNTER → 2017-02-19 | Outpatient (CLI) | payer OTHER ==
[2017-02-19 17:09] LABS: BASOPHILS # (AUTO) 0.02 10*3/UL; BASOPHILS % (AUTO) 0.4 % (0-1); EOSINOPHILS # (AUTO) 0.15 10*3/UL; EOSINOPHILS % (AUTO) 2.8 % (0-8); HEMATOCRIT 30.3 % (37.0-47.0); HEMOGLOBIN 8.9 g/dL (12.0-16.0); LYMPHOCYTES # (AUTO) 1.51 10*3/uL; MEAN CORPUSCULAR HEMOGLOBIN 23.7 PG (27-31); MEAN CORPUSCULAR HGB CONC 29.4 g/dL (33-37); MEAN CORPUSCULAR VOLUME 80.8 FL (81-99); MEAN PLATELET VOLUME 9.9 FL (7.4-12.2); MONOCYTES % (AUTO) 5.7 % (5-15); NEUTROPHILS # (AUTO) 3.28 10*3/UL; NEUTROPHILS % (AUTO) 62.2 % (50-80); RED BLOOD COUNT 3.75 10^6/uL (4.20-5.40)
[2017-02-19 17:11] LABS: CALCIUM 9.1 mg/dL (8.7-10.7); SERUM ALBUMIN 3.7 g/dL (3.5-4.8)
[2017-02-19 17:13] LABS: PLATELET MORPHOLOGY COMMENT NORMAL MORPHOLOGY (NORM); RBC MORPHOLOGY COMMENT NORMAL MORPHOLOGY (NORM); WBC MORPHOLOGY COMMENT NORMAL MORPHOLOGY (NORM)
== END ==
LOC: MOB LAB 14:51
PROVIDERS: ATTEND Family Medicine
DX: D64.9 Anemia, unspecified (principal); R04.0 Epistaxis; I10 Essential (primary) hypertension
CPT/HCPCS: 36415; 80053; 85025; 99213; G0463

== ENCOUNTER 2017-04-21 22:03 | Emergency (ER) | payer OTHER ==
[2017-04-21] MEDS ORDERED: Sodium Chloride 0.9% 1,000 ML PRIMARY IV ONE (22:32)
[2017-04-21] MEDS ORDERED: NORMAL SALINE 10 ML SYRINGE FLUSH IVP PRN (22:32)
[2017-04-21 22:53] LABS: BASOPHILS # (AUTO) 0.03 10*3/UL; BASOPHILS % (AUTO) 0.4 % (0-1); EOSINOPHILS # (AUTO) 0.26 10*3/UL; EOSINOPHILS % (AUTO) 3.1 % (0-8); HEMATOCRIT 33.1 % (37.0-47.0); LYMPHOCYTES # (AUTO) 3.04 10*3/uL; MEAN CORPUSCULAR HEMOGLOBIN 22.9 PG (27-31); MEAN CORPUSCULAR HGB CONC 30.2 g/dL (33-37); MEAN CORPUSCULAR VOLUME 75.9 FL (81-99); MEAN PLATELET VOLUME 9.3 FL (7.4-12.2); MONOCYTES # (AUTO) 0.59 10*3/UL (0.3-0.8); NEUTROPHILS # (AUTO) 4.45 10*3/UL; NEUTROPHILS % (AUTO) 53.1 % (50-80); RED BLOOD COUNT 4.36 10^6/uL (4.20-5.40)
[2017-04-21 22:54] LABS: PLATELET MORPHOLOGY COMMENT NORMAL MORPHOLOGY (NORM); RBC MORPHOLOGY COMMENT NORMAL MORPHOLOGY (NORM); WBC MORPHOLOGY COMMENT NORMAL MORPHOLOGY (NORM)
[2017-04-21 23:05] LABS: BLOOD UREA NITROGEN 27 mg/dL (7-22); BUN/CREATININE RATIO 19.28 (6-20)
--- NOTE | 2017-04-21 23:24 | DI ---
HISTORY: Hemoptysis. COMPARISON: None available. TECHNIQUE: PA and lateral radiographs were obtained of the chest. FINDINGS: No focal airspace consolidation, pleural effusion or pneumothorax. Subtle, bibasilar opaci ties are identified. A normal heart size is noted. Atherosclerotic vascular calcifications are seen . There is evidence of multilevel thoracic degenerative changes and decreased mineralization. IMPRESSION: 1. Subtle, bibasilar opacities; probable atelectasis. No lobar consolidation or effusion. RECOMMENDATION: If continued concern, consider CT for further evaluation.
--- NOTE | 2017-04-21 23:54 | PDOC ---
General Adult HPI - General Chief Complaint: Nasal/Mouth Problem /Injury Stated Complaint: COUGHING UP BLOOD Date Seen by Provider: 04/21/17 Time Seen by Provider: 22:15 Source: POSITIVE: Patient, Spouse, Old records Exam Limitations: POSITIVE: No limitations Nurse's Notes Reviewed & Considered: Yes - History of Present Illness Initial Comment: The patient is a 76-year-old female. She presents to the emergency room with a chief complaint of"coughing and spitting up blood". This began approximately one to one and a half hours [employer]. Approximately one month ago the patient had very persistent epistaxis and she states she had to have some kind of a surgical procedure "in my sinus"performed at [facility] to control this bleeding. She's not had any nosebleeds since. No fevers or chills. Cough is productive of waqar blood with no sputum mixed in. No chest pain or dyspnea. She is a nonsmoker and does not drink alcohol. Have you received a tetanus shot in the past 10 years?: Yes Body Location Affected: REPORTS: Chest, Other (Hemoptysis as above) Timing: REPORTS: Abrupt Duration: 1-3 hours Severity: Moderate Quality: REPORTS: Other (Patient denies any pain anywhere) Context: REPORTS: Other (Patient was sitting watching TV when she developed cough and hemoptysis) Modifying Factors: worse with: Nothing, Analgesics, Antacids, Breathing, Coughing, Defecating, Vomiting, Eating, Exercise, Lying down, Urinating, Palpation, Movement, Rest, Upright Position, Walking, Remaining Still, Other Similar Symptoms Previously: No Recent Care Received: REPORTS: Recently Seen, Treated by MD (Treated for epistaxis one to 2 months ago at [facility] [place]. Patient has no nosebleeds presently.) Any Prior Injuries Related to Current Complaint?: No - Patient Home Medications Home Medications: Home Medications Abatacept Inj [Orencia Inj] 250 mg IV MONTHLY 04/29/16 Furosemide 1 tab PO DAILY tab 11/05/16 Ferrous Sulfate 325 mg PO DAILY #30 tab 02/19/17 Oxycodone HCl/Acetaminophen [Oxycodon-Acetaminophen 7.5-325] 1 each PO Q4H PRN # 30 tablet 02/19/17 Metoprolol Succinate 1 tab PO DAILY #90 tab 03/26/17 - Patient Allergies Allergies/Adverse Reactions: Allergies Allergy/AdvReac Type Severity Reaction Status Date / Time meloxicam Allergy Severe VOMITING Verified 04/21/17 22:31 Past Medical History - heen HEENT History: Denies History Cardiovascular History: Hypertension, PVD, Arrhythmia, Other (please comment) Additional Cardiovasular History: previous episodes of rapid HR and chest pain Respiratory History: Denies History Gastrointestinal History: Denies History Genitourinary History: Denies History Endocrine History: Denies History Musculoskeletal History: Rheumatoid Arthritis Prosthesis or Implant: No Neurological History: Denies History Blood Disorders: Anemia Psychiatric History: Denies History History of Sexually Transmitted Diseases: No Female Reproductive History: Denies History Obstetrical History: Denies History Cancer History: Denies History In Past Year Been Physically Harmed or Verbally Threatened: No History of MDRO: No History of Other Communicable Diseases: No Tobacco Use: Former Smoker Alcohol Use: None Substance Use Type: None Previous Surgical History: No Type / Date of Surgery: T&A/APPY/HYSTER/bowel resection, nasal surgery Anesthesia Reactions: No Malignant Hyperthermia: No Significant Family History: No pertinent family hx Past Medical History Reviewed: Reviewed - No Changes ROS - Limitations ROS Limitations: No Limitations Constitution: REPORTS: Denies Symptoms Cardiovascular: REPORTS: Denies Cardiac Symptoms Respiratory: REPORTS: Other (Cough with bright red hemoptysis) Neurological: REPORTS: Denies Neuro Symptoms Gastrointestinal: REPORTS: Denies GI Symptoms Endocrine: REPORTS: Denies Symptoms Musculoskeletal: REPORTS: Denies MS Symptoms Genitourinary: REPORTS: Denies Symptoms Eyes: REPORTS: Denies Symptoms ENT: REPORTS: Denies Symptoms Skin: REPORTS: Denies Skin Symptoms Lympathic: REPORTS: Denies Lympathic Symptoms Immunologic: POSITIVE: Denies Symptoms Psychiatric: POSITIVE: Denies Psych Symptoms General Adult Exam - General Appearance General Appearance: POSITIVE: Alert, Cooperative, No Acute Distress, No Evidence of Trauma - HEENT HEENT: POSITIVE: Head Inspection Nml, Eyes Inspection Nml, Ears Inspection Nml, Nose Inspection Nml, Oral/Dental Inspect. Nml, Pharynx Inspect. Nml, PERRL, EOMI , Other (Inspection of no-shows no epistaxis. No blood coming down from the nasopharynx.) - Pupils Pupil Size: 3 mm: Bilateral (PERRLA) - Neck Neck: POSITIVE: Normal Inspection, Thyroid Normal - Respiratory Respiratory: POSITIVE: No Respiratory Distress, Breath Sounds Normal, Chest Non- Tender - Cardiovascular Cardiovascular: POSITIVE: Regular Rate & Rhythm, No Murmur, No Gallop, PMI Normal Peripheral Pulses: Radial (R): 2+, Radial (L): 2+ - Abdomen Abdomen: Soft: (All Quadrants), Normal Bowel Sounds: (All Quadrants), Denies Tenderness: (All Quadrants), No Splenomegaly: (All Quadrants), No Hepatomegaly: (All Quadrants), No Guarding: (All Quadrants), No Rebound: (All Quadrants), No Palpable Pulse: (All Quadrants), No Palpabale Mass: (All Quadrants), No Distention: (All Quadrants), No Rigidity: (All Quadrants) - Back Back: POSITIVE: Normal Inspection - Skin Skin: POSITIVE: Normal Color, Warm, Dry, No Rash - Extremities Extremity: Non-Tender: (All Extremities), Normal ROM: (All Extremities), Normal Inspection: (All Extremities) - Neurological / Psychological Neurological: POSITIVE: Oriented X3, template clerk Normal As Tested, Motor Normal, Sensation Normal, 5, 6 General Adult Progress - Results Reviewed by me Xrays/CTs/US Reviewed by me: Yes Discussed with Radiologist: Yes Radiology Findings: Chest x-ray normal by my interpretation. Radiologist makes mention of "settle, bibasilar opacities". D-dimer is mildly elevated but CTA not done here because of elevated renal functions. Lab Results Reviewed: Yes Lab Results:: Laboratory Results 04/21/17 Range/Units 22:48 WBC 8.38 (4.8-10.8) 10^3/uL RBC 4.36 (4.20-5.40) 10^6/uL Hgb 10.0 L (12.0-16.0) g/dL Hct 33.1 L (37.0-47.0) % MCV 75.9 L (81-99) FL MCH 22.9 L (27-31) PG MCHC 30.2 L (33-37) g/dL RDW Std Deviation 45.5 (39-50) fL RDW Coeff of Julian 17.1 H (11.5-14.5) % Plt Count 327 (140-350) 10*3/uL MPV 9.3 (7.4-12.2) FL Immature Gran % (Auto) 0.1 (0-5) % Neut % (Auto) 53.1 (50-80) % Lymph % (Auto) 36.3 (10-50) % [place] % (Auto) 7.0 (5-15) % Eos % (Auto) 3.1 (0-8) % Baso % (Auto) 0.4 (0-1) % Immature Gran # (Auto) 0.01 10*3/UL Neut # (Auto) 4.45 10*3/UL Lymph # (Auto) 3.04 10*3/uL [place] # (Auto) 0.59 (0.3-0.8) 10*3/UL Eos # (Auto) 0.26 10*3/UL Baso # (Auto) 0.03 10*3/UL WBC Morphology Comment Normal morphology (NORM) Plt Morphology Comment Normal morphology (NORM) RBC Morph Comment Normal morphology (NORM) PT 10.2 (9.7-11.4) secs INR 0.99 (0.00-5.90) N/A APTT 27.7 (22.6-31.3) SECS D-Dimer 1.06 H (0.00-0.59) mg/L Sodium 142 (135-145) meq/L Potassium 4.7 (3.8-5.2) meq/L Chloride 110 (98-112) meq/L Carbon Dioxide 23 (23-33) meq/L Anion Gap 9 (5-20) BUN 27 H (7-22) mg/dL Creatinine 1.4 H (0.50-1.20) mg/dL Estimated GFR Continuous Miner BUN/Creatinine Ratio 19.28 (6-20) Glucose 94 (78-110) mg/dL Calculated Osmolality 298.0 H (267-292) mOsm/kg Calcium 9.0 (8.7-10.7) mg/dL Total Bilirubin 0.3 (0.3-1.2) mg/dL AST 30 (8-39) IU/L ALT 28 (9-52) IU/L Alkaline Phosphatase 127 H (38-126) IU/L Total Protein 8.2 H (6.1-8.0) g/dL Albumin 4.0 (3.5-4.8) g/dL Globulin 4.2 H (2.50-4.10) g/dL Albumin/Globulin Ratio 0.90 L (1.3-2.0) mg/g - Patient's Progress Pain Medication Addressed: POSITIVE: Yes (Patient quite anxious; Ativan 1 mg IV given) School/Work Release Addressed: POSITIVE: Not Applicable Re-Examine Time: 23:30 Re-Examine Comment: X-ray and laboratory results discussed with patient and her . Advised patient and her that I'm not sure what the source of her hemoptysis is. Advised that she needs further evaluation. Patient does not presently have any epistaxis. Case discussed with Dr. Webber, emergency physician at [facility] [place], and patient trans-furred to that facility for further evaluation and treatment. Estimated blood loss from hemoptysis to be around 40-50 mL. Status: POSITIVE: Unchanged, Re-Examined Antibiotics Given: No - Consult Consult (If Yes, Name of Consulting MD & Time Called): Yes (Dr. Webber, ER, [facility] [place], 5567) Consulting MD will see pt:: POSITIVE: Recommended Transfer Counseled: POSITIVE: Patient, Family, RE: Lab Results, RE: Radiology Results, RE : DX, RE: Need for F/U Patient Care Time - Estimated PCT Patient Care Time (In Minutes): 60 Vital Signs - Recent Vital Signs Vital Signs: Vital Signs (Last 8 hours) Temp Pulse Resp BP Pulse Ox 04/21/17 22:15 97.7 F 89 16 178/112 96 - VS Reviewed Vital Signs Reviewed: Yes Discharge Clinical Impression: Hemoptysis Discharge Disposition: Transferred to Short Term Facility Condition: Good Date Decision to Transfer to Another Facility: 04/21/17 Time Decision to Transfer to Another Facility: 23:30
[2017-04-21] MEDS ORDERED: LORazepam 2 MG/1 ML VIAL IVP ONE (23:55)
[2017-04-22] MEDS ORDERED: LORazepam 2 MG/1 ML VIAL ONE (00:08)
[2017-04-22 00:51] VITALS: RESP 20; TEMP 97.3
== END 2017-04-22 00:24 | disposition short-term general hospital (02) ==
LOC: ER 22:03
DX: R04.2 Hemoptysis (principal); R79.89 Other specified abnormal findings of blood chemistry; I10 Essential (primary) hypertension
CPT/HCPCS: 36415; 71020; 80053; 85025; 85379; 85610; 85730; 96361; 96374; 99284; J2060; J7030

== ENCOUNTER → 2017-06-16 | Outpatient (CLI) | payer OTHER | LOC: MMPC 09:00 | PROVIDERS: ATTEND Family Medicine | DX: R91.8 Other nonspecific abnormal finding of lung field (principal); E27.9 Disorder of adrenal gland, unspecified; K86.9 Disease of pancreas, unspecified | CPT/HCPCS: 99213; G0463 ==

== ENCOUNTER 2018-12-20 16:59 | Inpatient (IN) ==
[2018-12-20] MEDS ORDERED: LIDOCAINE W/ SODIUM BICARB 0.5 ML SYR SUBD PRN (17:06)
--- NOTE | 2018-12-20 17:39 | PDOC ---
HPI - History of Present Illness History of Present Illness: This very nice 78-year-old female with a history of multiple GI bleeds sore some verified yet at this point she was feeling lightheaded and had black tarry stools went to see her primary care physician which teodoro some blood work hemoglobin came back at 7.4 she contacted the general surgeon which has agreed to had do an EGD in the morning to try to find the source of bleeding at present time she is hemodynamically stable Past Medical History Medical History: 1. GERD. 2. History of gastric ulcers, antral ulcers found on EGD 04/08. 3. Diverticulosis with history of diverticular bleed needed sigmoid colectomy 2015. 4. Rheumatoid arthritis. 5. Hypertension. 6. Anemia. 7. Right adrenal tumor. 8. multiple plumonary nodules. 9. Cholelithiasis Surgical History: 1. Tonsillectomy and adenoidectomy. 2. Hysterectomy. 3. Appendectomy. 4. Upper and lower endoscopy. 5. Sigmoid colectomy for diverticular bleed 2015 Family History: Reviewed an Not Pertinent Pertinent Family History: No significant family history of GI bleeds Past Social History: Does not smoke or drink. . Has 2 children unfor tunately one passed on this past June from drug use. Lives in [place], [place]. In the Past 12 Months, Have Used or Abuse Any of the Following Substance: None Medication / Allergies Home Medications: Home Medications Medication Instructions Recorded Confirmed Type Abatacept Inj [Orencia Inj] 750 mg IV MONTHLY 03/31/18 12/20/18 History Metoprolol Succinate 50 mg PO DAILY 03/31/18 12/20/18 History ferrous gluconate 324 mg (38 mg 324 mg PO QDAY #30 tab 12/16/18 12/20/18 Rx iron) tablet pantoprazole 40 mg tablet,delayed 40 mg PO QDAY 12/16/18 12/20/18 History release Allergies/Adverse Reactions: Allergies Allergy/AdvReac Type Severity Reaction Status Date / Time meloxicam AdvReac Severe VOMITING Verified 12/20/18 15:30 Review of Systems - Review of Systems All Systems: Reviewed & No Additional Complaints Except as Stated - Respiratory Respiratory: DENIES: Negative System Review, Cough, Sputum, Dyspnea At Rest, Dyspnea with Exertion, Pleuritic Pain, Hemoptysis, Wheezing, Other, See HPI - Cardiovascular Cardiovascular: DENIES: Negative System Review, Chest Pain, Edema, Syncope, Palpitations, Orthopnea, Paroxysmal Nocturnal Dyspnea, Other, See HPI Exam - General General Appearance: No Acute Distress, Cooperative - Respiratory Respiratory Exam: POSITIVE: Clear to Auscultation - Bilaterally, Breathing Non Labored, Normal To Percussion, Normal to Percussion and Palpation - Cardiovascular Cardiovascular Exam: POSITIVE: RRR, No Murmur, No Clicks, No Gallops, No Rubs, PMI Non-Displaced - GI/Abdominal GI/Abdominal Exam: POSITIVE: Normal Bowel Sounds, Non Tender, Non Distended, Soft, No Masses, No Hepatomegaly, No Splenomegaly, No Organomegaly - Extremities Extremities Exam: POSITIVE: No Clubbing Present, No Edema Present Assessment and Plan - Patient Problems (1) GI bleed Current Visit: Yes Status: Acute Comment: Etiology unknown had multiple scopes will repeat EGD in the morning by Dr. chris Caceres we will hydrate the patient if hemoglobin drops below 7 we will transfuse 2 units we have already ordered a type and cross I believe ultimately she will need a pill endoscopy and referral to GI. I talked to Dr. Madrid and now she has been following up with nephrology hematology for her anemia lung and pancreatic masses Code(s): K92.2 - Gastrointestinal hemorrhage, unspecified (2) Acute renal failure Current Visit: No Status: Acute Comment: IV fluids Code(s): N17.9 - Acute kidney failure, unspecified Qualifiers: (3) Anemia Current Visit: No Status: Acute Priority: Medium Comment: Monitor on telemetry Code(s): D64.9 - Anemia, unspecified Qualifiers:
[2018-12-20] MEDS ORDERED: ZOLPIDEM 10 MG TABLET PO PRN (18:21)
[2018-12-20 18:28] LABS: BILIRUBIN,URINE NEGATIVE (NEG); CLARITY,URINE CLEAR (CLEAR); COLOR,URINE YELLOW; GLUCOSE, URINE (UA) NEGATIVE (NEG); OCCULT BLOOD,URINE NEGATIVE (NEG); PH,URINE 6.5 (5.0-8.5); PROTEIN,URINE NEGATIVE (NEG); UROBILINOGEN,URINE 0.2 mg/dL (0.2)
[2018-12-20 18:33] LABS: SQUAMOUS EPITHELIAL CELL,UR FEW; URINE SAMPLE TYPE CLEAN CATCH URINE; WBC,URINE RARE
[2018-12-20] MEDS: PANTOPRAZOLE IV 40 MG VIAL IVP SCH (18:52)
[2018-12-20] MEDS: Sodium Chloride 0.9% 1,000 ML PRIMARY IV SCH (18:52)
--- NOTE | 2018-12-20 20:10 | DI ---
EXAM: CT Abdomen and Pelvis Without Intravenous Contrast CLINICAL HISTORY: ITS.REASON abd pain Physician Notes: Tech Comments: TECHNIQUE: Axial computed tomography images of the abdomen and pelvis without intravenous contrast. COMPARISON: No relevant prior studies available. FINDINGS: Lung bases: Numerous small nodules in the lung bases. Heart: Cardiomegaly. Mediastinum: Small hiatal hernia. ABDOMEN: Liver: Unremarkable Gallbladder and bile ducts: Cholelithiasis. Pancreas: Unremarkable. Spleen: Unremarkable. Adrenals: Right adrenal adenoma measuring 3.8 cm. Kidneys and ureters: Bilateral renal cysts and other small foci. The largest cyst measures 5.3 cm and is located in the right kidney. Stomach and bowel: Colonic diverticula without diverticulitis. Sutures related to the distal colon. PELVIS: Appendix: Appendix not identified. Bladder: Unremarkable. Reproductive: Hysterectomy. ABDOMEN and PELVIS: Intraperitoneal space: Unremarkable. Bones/joints: Small sclerosis at L2. Soft tissues: Unremarkable. Vasculature: Unremarkable. No abdominal aortic aneurysm. Lymph nodes: No enlarged lymph nodes. IMPRESSION: 1. Cholelithiasis. 2. Colonic diverticula without diverticulitis. 3. Appendix not identified. 4. Numerous small nodules in the lung bases. May be inflammatory versus neoplastic.
[2018-12-21] MEDS: Sodium Chloride 0.9% 1,000 ML PRIMARY IV SCH ×2 (03:23→12:16)
[2018-12-21 04:38] LABS: BASOPHILS # (AUTO) 0.02 10*3/UL; BASOPHILS % (AUTO) 0.4 % (0-1); EOSINOPHILS # (AUTO) 0.21 10*3/UL; EOSINOPHILS % (AUTO) 4.5 % (0-8); Hematocrit [HCT] 21.3 % (37.0-47.0); LYMPHOCYTES # (AUTO) 1.73 10*3/uL; MEAN CORPUSCULAR HEMOGLOBIN 22.6 PG (27-31); MEAN CORPUSCULAR HGB CONC 28.6 g/dL (33-37); MEAN CORPUSCULAR VOLUME 78.9 FL (81-99); MONOCYTES # (AUTO) 0.28 10*3/UL (0.3-0.8); NEUTROPHILS # (AUTO) 2.44 10*3/UL
[2018-12-21 04:59] LABS: Hemoglobin [HGB] 6.1 g/dL (12.0-16.0)
[2018-12-21 05:03] LABS: PLATELET MORPHOLOGY COMMENT NORMAL MORPHOLOGY (NORM); RBC MORPHOLOGY COMMENT SEE COMMENTS (NORM); WBC MORPHOLOGY COMMENT NORMAL MORPHOLOGY (NORM)
[2018-12-21] MEDS ORDERED: Sodium Chloride 0.9% 500 ML PRIMARY IV ONE (05:04)
[2018-12-21] MEDS: PANTOPRAZOLE IV 40 MG VIAL IVP SCH (05:24)
[2018-12-21] MEDS ORDERED: FUROSEMIDE 10 MG/1 ML - 2 ML VIAL IVP ONE (09:06)
[2018-12-21] MEDS ORDERED: Lactated Ringers 1,000 ML PRIMARY IV ONE (09:54)
--- NOTE | 2018-12-21 09:58 | PDOC(PROG) ---
Interval History: Patient had a great night's sleep Ambien really helped her her hemoglobin dropped down to 6 with some dizziness lightheadedness order to transfuse 2 units of packed red blood cells patient will be going down for an EGD this morning by Dr. chris Caceres Objective : Data - Labs CBC and BMP: 12/21/18 04:19 Objective : Exam - General General Appearance: Cooperative - Respiratory Respiratory Exam: Clear to Auscultation - Bilaterally, Breathing Non Labored, Normal To Percussion, Normal to Percussion and Palpation - Cardiovascular Cardiovascular Exam: RRR, No Murmur, No Clicks, No Gallops, No Rubs, PMI Non- Displaced - GI/Abdominal GI/Abdominal Exam: Normal Bowel Sounds, Non Tender, Non Distended, Soft, No Masses, No Hepatomegaly, No Splenomegaly, No Organomegaly - Extremities Extremities Exam: No Clubbing Present, No Edema Present Assessment and Plan - Patient Problems (1) GI bleed Current Visit: Yes Status: Acute Comment: Transfuse 2 units of further tarry stools going for EGD Code(s): K92.2 - Gastrointestinal hemorrhage, unspecified (2) Acute renal failure Current Visit: No Status: Acute Comment: Check CMP most likely prerenal apparently had a renal kidney biopsy by Dr. Metcalf in [place] Code(s): N17.9 - Acute kidney failure, unspecified Qualifiers: (3) Anemia Current Visit: No Status: Acute Priority: Medium Comment: She is followed by Dr. Butler as well hematology oncology in [place] Code(s): D64.9 - Anemia, unspecified Qualifiers: (4) Lung nodules Current Visit: Yes Status: Acute Comment: On CT she will need pulmonology or hematoma on consult I let Dr. Madrid know Code(s): R91.8 - Other nonspecific abnormal finding of lung field
[2018-12-21 10:08] LABS: BLOOD UREA NITROGEN 22 mg/dL (7-22); BUN/CREATININE RATIO 15.71 (6-20); SERUM ALBUMIN 3.1 g/dL (3.5-4.8)
[2018-12-21] MEDS ORDERED: LIDOCAINE W/ SODIUM BICARB 0.5 ML SYR ONE (10:17)
[2018-12-21] MEDS ORDERED: LIDOCAINE 2% VISCOUS(20 MG/1 ML) - 15 ML UD CUP PO ONE (10:43)
[2018-12-21] MEDS ORDERED: PROPOFOL 10 MG/1 ML (200 MG/20 ML) VIAL IV ONE (10:43)
--- NOTE | 2018-12-21 10:58 | GEN.OPNOTE ---
EGD Operative Note Surgery Date: 12/21/18 Preoperative Diagnosis: Gastrointestinal hemorrhage Postoperative Diagnosis: Angiodysplasia of the stomach Procedure: Esophagogastroduodenoscopy Surgeon: Luis Cuba MD Anesthesia Provider: Milton Cunningham CRNA Anesthesia Type: MAC Indications: Patient has anemia with hemoglobin 6.1. She has a history of black tarry sto ols. Findings: Esophagus: Olympus video EGD scope inserted in posterior pharynx pathology esophagus under visualization. Patient esophagus appeared to be normal GE Junction : At 30 cm from incisors Fundus : Retroflexed on itself revealing a normal fundus. Body : Patient had angiodysplastic area seen in the greater curvature of the stomach not actively bleeding. Prepyloric : Prepyloric area was normal Small Intestine : First second portion the duodenum was normal second portion had what appeared to be in patches with healing ulcers. A lubricated flexible upper endoscope was inserted and passed through the eso phagus and stomach into the duodenum.
--- NOTE | 2018-12-21 11:07 | CRNA.PROGR ---
Anesthesia Time - Procedure/Recovery Time Start Date: 12/21/18 End Date: 12/21/18 Anesthesia : Time In: 10:40 Anesthesia : Time Out: 10:52 Anesthesia : Total Time: 12 - Total Anesthesia Time Total Anesthesia Time (minutes): 12 - Other Weight: 80.286 kg Height: 5 ft 8 in Body Mass Index (BMI): 26.9 Physical Status: P3 Anesthesia Type: MAC
--- NOTE | 2018-12-21 11:07 | CRNA.PROGR ---
Post Anesthesia Phase II - Post Anesthesia Phase II Patient Stable and Discharged To: Phase II (Ok to return to Med floor. AAO/VSS) Temperature: 97.7 F Pulse Rate: 90 Respiratory Rate: 14 Blood Pressure: 139/74 Pulse Ox: 100 Total August Score at Discharge: 10 Post Anesthesia Discharge Criteria Met: Yes
[2018-12-21] MEDS: METOPROLOL SUCCINATE 50 MG SR 24H TABLET PO SCH (12:54)
[2018-12-21] MEDS: FERROUS GLUCONATE 324 MG TABLET PO SCH (12:54)
[2018-12-21] MEDS: PANTOPRAZOLE 40 MG TABLET PO SCH (15:56)
[2018-12-21 17:17] LABS: BLOOD UREA NITROGEN 20 mg/dL (7-22); BUN/CREATININE RATIO 14.28 (6-20); SERUM ALBUMIN 4.1 g/dL (3.5-4.8)
[2018-12-22 04:14] VITALS: RESP 20
[2018-12-22 04:48] LABS: Hematocrit [HCT] 31.7 % (37.0-47.0); Hemoglobin [HGB] 9.7 g/dL (12.0-16.0); MEAN CORPUSCULAR HEMOGLOBIN 24.1 PG (27-31); MEAN CORPUSCULAR HGB CONC 30.6 g/dL (33-37); MEAN CORPUSCULAR VOLUME 78.7 FL (81-99); MEAN PLATELET VOLUME 10.4 FL (7.4-12.2); RED BLOOD COUNT 4.03 10^6/uL (4.20-5.40)
[2018-12-22 05:00] LABS: BLOOD UREA NITROGEN 17 mg/dL (7-22); BUN/CREATININE RATIO 13.07 (6-20); SERUM ALBUMIN 3.9 g/dL (3.5-4.8)
[2018-12-22] MEDS: PANTOPRAZOLE 40 MG TABLET PO SCH (06:46)
[2018-12-22 07:39] VITALS: BP 134/64; TEMP 97.2; O2SAT 92
[2018-12-22] MEDS: METOPROLOL SUCCINATE 50 MG SR 24H TABLET PO SCH (08:09)
[2018-12-22] MEDS: FERROUS GLUCONATE 324 MG TABLET PO SCH (08:09)
--- NOTE | 2018-12-22 09:23 | DCSUMMARY ---
Hospitalization Summary Hospital Course: Final Discharge Diagnosis: Current Visit Problems Problem Status Onset Code GI bleed Acute K92.2 Lung nodules Acute R91.8 Diagnostic Data, Laboratory Data, and Procedures of Signifigance: Laboratory Results 12/20/18 12/21/18 12/21/18 18:30 04:10 17:00 WBC RBC Hgb Hct MCV MCH MCHC RDW Std Deviation RDW Coeff of Julian Plt Count MPV Sodium 141 142 Potassium 4.7 4.3 Chloride 113 H 109 Carbon Dioxide 24 26 Anion Gap 4 L 7 BUN 22 20 Creatinine 1.4 H 1.4 H Estimated GFR Supervisor Dental Laboratory Supervisor Dental [facility] BUN/Creatinine Ratio 15.71 14.28 Glucose 97 104 Calculated Osmolality 294.0 H 296.0 H Calcium 8.3 L 8.9 Total Bilirubin 0.3 0.6 D AST 28 26 ALT 25 D 18 Alkaline Phosphatase 77 74 Total Protein 5.8 L 7.0 Albumin 3.1 L 4.1 Globulin 2.7 2.9 Albumin/Globulin Ratio 1.10 L 1.40 Crossmatch See Detail 12/22/18 12/22/18 04:04 04:04 WBC 5.01 RBC 4.03 L Hgb 9.7 L Hct 31.7 L MCV 78.7 L MCH 24.1 L MCHC 30.6 L RDW Std Deviation 48.2 RDW Coeff of Julian 17.5 H Plt Count 297 MPV 10.4 Sodium 142 Potassium 4.2 Chloride 109 Carbon Dioxide 24 Anion Gap 9 BUN 17 Creatinine 1.3 H Estimated GFR Supervisor [facility] BUN/Creatinine Ratio 13.07 Glucose 92 Calculated Osmolality 295.0 H Calcium 8.9 Total Bilirubin 0.5 AST 22 ALT 19 Alkaline Phosphatase 80 Total Protein 6.9 Albumin 3.9 Globulin 3.0 Albumin/Globulin Ratio 1.30 Crossmatch EGD results from Dr. chris Caceres Findings: Esophagus: Olymp[employer] video EGD scope inserted in posterior pharynx pathology esophagus under visualization. Patient esophagus appeared to be normal [place] : At 30 cm from incisors Fundus : Retroflexed on itself revealing a normal fundus. Body : Patient had angiodysplastic area seen in the greater curvature of the stomach not actively bleeding. Prepyloric : Prepyloric area was normal Small Intestine : First second portion the duodenum was normal second portion had what appeared to be in patches with healing ulcers. A lubricated flexible upper endoscope was inserted and passed through the esophagus and stomach into the duodenum. History and Physical pertinent to Admission: Course of Hospitalization: This very nice 78-year-old female was sent over as a direct admit for a low hemoglobin and anemia with tarry stools. During her hospitalization she was transfused 2 units of packed red blood cells tolerated this well her hemoglobin was 6.1. She also had some acute renal failure most likely prerenal creatinine down from 1.7-1.4 improved with IV fluids. Dr[address] chris Caceres performed EGD and found the angiodysplasia and healing ulcers results are up above. CT scan of the abdomen and pelvis revealed no diverticulitis but still multiple nodules at the lung bases as the last CT over the chest revealed. Primary care physician Dr. Madrid is a looking into these follow-ups with possible pulmonology or he Trinityck which she already sees. I also told the patient she should follow up with Dr. Butler for her anemia and the multiple lung nodules at the bases. She understands and agrees. I also told the as well. While in the room I was not there but the patient's dog bit her 's hand with the distress skin tear I have treated it with the hydrogen peroxide and the butterfly st itches patient refused to be signed into the ER or to take any antibiotics he was appreciative of the bandaging them up but did not want to do anything else I did tell him that if the is hand got red area and start her new issue go see her primary care physician or go to the ER On the date of discharge, the patient was examined: Gen.: No acute distress, alert, nontoxic Heart: Regular rate and rhythm, no murmurs, clicks, gallops, or rubs Lungs: Clear to auscultation bilaterally, breathing is nonlabored Abdomen/GI: Normal tones on auscultation, soft, nontender, nondistended Musculoskeletal/extremities: No clubbing, cyanosis, or edema Vitals reviewed and are listed below Vital Signs (24 hrs) 12/21/18 09:27 12/21/18 09:28 12/21/18 10:54 Temperature 97.8 F 97.8 F 97.7 F Pulse Rate 86 90 90 Pulse Rate [Apical] Pulse Rate [Pulse Oximeter] Respiratory Rate 24 24 14 Blood Pressure 149/54 168/88 139/74 Blood Pressure [Right Arm] Pulse Ox 95 95 100 12/21/18 11:10 12/21/18 11:22 12/21/18 16:01 Temperature 97.8 F 98.1 F Pulse Rate 87 Pulse Rate [Apical] Pulse Rate [Pulse Oximeter] 86 91 Respiratory Rate 14 16 20 Blood Pressure 136/59 Blood Pressure [Right Arm] 175/66 158/72 Pulse Ox 95 95 95 12/21/18 19:00 12/21/18 19:12 12/22/18 00:14 Temperature 98.3 F 97.9 F Pulse Rate Pulse Rate [Apical] 90 Pulse Rate [Pulse Oximeter] 95 80 Respiratory Rate 20 21 Blood Pressure Blood Pressure [Right Arm] 134/79 122/58 Pulse Ox 92 94 12/22/18 04:14 12/22/18 07:00 12/22/18 07:38 Temperature 97.9 F 97.2 F Pulse Rate Pulse Rate [Apical] 90 Pulse Rate [Pulse Oximeter] 81 77 77 Respiratory Rate 20 20 Blood Pressure Blood Pressure [Right Arm] 136/59 134/64 Pulse Ox 91 92 Assessment and Plan: 1. As per discharge assessments above 2. Disposition: Home 3. Condition on discharge, stable and improved. 4. Diet: regular diet 5. Activities: resume normal activities 6. Follow-Up: 1. PCP 2. Dr. Madrid, Dr. Butler 7. Medications at the Time of Discharge: Home Medications Medication Instructions Recorded Confirmed Type Abatacept Inj [Orencia Inj] 750 mg IV MONTHLY 03/31/18 12/20/18 History Metoprolol Succinate 50 mg PO DAILY 03/31/18 12/20/18 History ferrous gluconate 324 mg (38 mg 324 mg PO QDAY #30 tab 12/16/18 12/20/18 Rx iron) tablet Pantoprazole Sodium [Protonix] 40 mg PO AC BK #90 tab 12/22/18 Rx 8. Time, care, counseling and coordination of care for this discharge is greater than 30 minutes. Exam - Vitals Vital Signs: Vital Signs Temperature 97.2 F Temperature Source Temporal Artery Scan Pulse Rate [Apical] 90 Pulse Rate [Pulse Oximeter] 77 Pulse Rate 87 Respiratory Rate 20 Blood Pressure [Right Arm] 134/64 Blood Pressure 136/59 Pulse Ox 92 Oxygen Flow Rate RA Oxygen Delivery Method Room Air Height 5 ft 8 in Weight 177 lb Patient Problems - Patient Problem List (1) GI bleed Current Visit: Yes Status: Acute Code(s): K92.2 - Gastrointestinal hemorrhage, unspecified Category: Medical (2) Acute renal failure Current Visit: No Status: Acute Code(s): N17.9 - Acute kidney failure, unspecified Qualifiers: Category: Medical (3) Anemia Current Visit: No Status: Acute Priority: Medium Comment: Secondary to GI bleed as above. Stable at present time Code(s): D64.9 - Anemia, unspecified Qualifiers: Category: Medical (4) Lung nodules Current Visit: Yes Status: Acute Code(s): R91.8 - Other nonspecific abnormal finding of lung field Category: Medical
== END 2018-12-22 10:02 | disposition home or self-care (01) | DRG 812 ==
LOC: MED/SURG 17:18 → OPS 12-21 10:07 → MED/SURG 12-21 11:13
PROVIDERS: ADMIT Internal Medicine; ATTEND Internal Medicine